=== PATIENT | female | born 1960 | race Caucasian/White ===

== ENCOUNTER 2020-01-12 11:17 | Outpatient (CLI) | payer BC, SELFPAY ==
--- NOTE | ~2020-01-12 | CT_ITS ---
EXAMINATION: CT sinus wo con DATE: 01/12/2020 11:47 INDICATION: Chronic sinusitis TECHNIQUE: Computed tomography (CT) of the paranasal sinuses was performed without intravenous contra st. The dose-length product was 284.29 mGy-cm. Automated exposure control and iterative reconstructio n technique were employed. COMPARISON: None FINDINGS: There is no significant mucosal thickening or air-fluid level. No mucoperiosteal reaction. Ostiomeatal units are patent. Leftward nasal septal deviation. There are teeth protruding into the ma xillary antrum bilaterally. Mastoids are pneumatized. IMPRESSION: 1. No significant paranasal sinus disease. Reviewed, dictated and finalized at location A.
== END 2020-01-12 11:18 | disposition home or self-care (01) ==
PROVIDERS: PCP Family Medicine; Visit Provider Otolaryngology
DX: J32.9 Chronic sinusitis, unspecified (principal)
CPT/HCPCS: 70486

== ENCOUNTER 2020-12-01 15:08 | Outpatient (CLI) | payer BC, SELFPAY ==
--- NOTE | ~2020-12-01 | DEXA_ITS ---
Bone Density Report Name: Norah Cardenas Age: 60 Sex: Female Ethnicity: White Date of : 1960 Indication: postmenopausal; height loss; prior fracture; asthma or emphysema; Referring Provider: DUANE AHMADI Study: Bone densitometry was performed. Exam Date: December 01, 2020 Accession number: [id number] Bone Density: Region BMD T-score Z-score Classification AP Spine (L1-L4) 1.380 3.0 4.4 Normal Femoral Neck (Left) 0.886 0.3 1.6 Normal Total Hip (Left) 1.112 1.4 2.3 Normal Total Hip Bilateral Avg 1.077 1.1 2.0 Normal Femoral Neck (Right) 0.748 -0.9 0.3 Normal Total Hip (Right) 1.041 0.8 1.7 Normal World Health Organization criteria for BMD impression classify patients as: Normal (T-score at or above -1.0), Osteopenia (T-score between -1.0 and -2.5), or Osteoporosis (T-score at or below -2.5). 10-year Fracture Risk: FRAX not reported because: All T-scores for Spine Total, Hip Total, Femoral Neck at or above -1.0 Clinical Information Provided by Patient: Has had a low trauma fracture Has the following medical conditions: Asthma or Emphysema Patient maximum height was 64.5 Menopause Age: 53 Does not regularly consume dairy products Drinks caffeinated beverages Onset of menses at age 13 Number of children 1 Impression: The patient has normal bone mass. The patient has risk factors, including: previous fracture. Discussion: BONE DENSITY IS ABOVE THE MINIMUM DESIRABLE LEVEL AT ALL SKELETAL SITES TESTED. This patient?s bone mineral density is above the minimum desirable level (T-score -1.0 or better) at all sites measured. The patient should follow a healthful lifestyle (good nutrition with adequate calcium and vitamin D, and appropriate weight-bearing exercise). Follow-Up: Consider repeating this study in 5 years or sooner if there is some new clinical indication. Reported by: JAKE on 12/01/2020 3:27:00 PM. Reviewed, dictated and finalized at location ASelvin RICH
--- NOTE | ~2020-12-01 | MM_ITS ---
EXAMINATION: MM screening constantino BI w callum HISTORY: Screening mammogram TECHNIQUE: Craniocaudal and mediolateral oblique 3-D tomosynthesis images were obtained and synthetic 2-D images were generated. CAD analysis was submitted and interpreted. COMPARISON: 07/01/2019 and 06/23/2000 19 mm left breast ultrasound examinations 01/03/2018, 08/21/2016, 07/13/2014 bilateral digital screening mammogram examinations BREAST PARENCHYMAL COMPOSITION: The breasts are almost entirely fatty. FINDINGS: Surgical clips are noted in the upper outer left breast; history of prior benign left breas t excisional biopsy. There is no evidence of suspicious mass, calcification, or architectural distort ion to suggest malignancy in either breast. There has been no suspicious interval change. IMPRESSION: 1. No mammographic evidence of malignancy. 2. Recommend routine screening mammography in one year. BI-RADS Category 1: Negative Reviewed, dictated and finalized at location A.
== END 2020-12-01 15:09 | disposition home or self-care (01) ==
LOC: ANHIMG 15:10
PROVIDERS: PCP Family Medicine; Visit Provider Family Medicine
DX: Z12.31 Encounter for screening mammogram for malignant neoplasm of breast (principal); Z78.0 Asymptomatic menopausal state; R93.7 Abnormal findings on diagnostic imaging of other parts of musculoskeletal system
CPT/HCPCS: 77063; 77067; 77080

== ENCOUNTER 2022-09-09 11:13 | Outpatient (CLI) | payer BC, SELFPAY ==
--- NOTE | ~2022-09-09 | MM_ITS ---
EXAMINATION: MM screening constantino BI w callum HISTORY: Screening mammogram TECHNIQUE: Craniocaudal and mediolateral oblique 3-D tomosynthesis images were obtained and synthetic 2-D images were generated. CAD analysis was submitted and interpreted. COMPARISON: 11/23/2020 bilateral screening mammogram BREAST PARENCHYMAL COMPOSITION: Biopsy marker clips in upper outer left breast; history of prior braulio gn left breast biopsy. FINDINGS: There is no evidence of suspicious mass, calcification, or architectural distortion to sugg est malignancy in either breast. There has been no suspicious interval change. IMPRESSION: 1. No mammographic evidence of malignancy. 2. Recommend routine screening mammography in one year. BI-RADS Category 1: Negative Reviewed, dictated and finalized at location A. TARY TECHNICIAN
== END 2022-09-09 11:14 | disposition home or self-care (01) ==
LOC: ANHIMG 11:35
PROVIDERS: PCP Family Medicine; Visit Provider Family Medicine
DX: Z12.31 Encounter for screening mammogram for malignant neoplasm of breast (principal)
CPT/HCPCS: 77063; 77067

== ENCOUNTER 2024-01-04 01:48 | Day surgery (SDC) | payer BC, SELFPAY ==
[2024-01-01 13:12] VITALS: BMI 46.7
[2024-01-04 10:20] VITALS: BP 148/91; PULSE 85; RESP 18; TEMP 36.4; O2SAT 98; BMI 46.0
[2024-01-04] MEDS: LACTATED RINGERS 1,000 ML 150 ML IV CONT (10:45)
--- NOTE | 2024-01-04 11:05 | WPDANESEPPF ---
Anes - Initial Pre Proc Eval Procedure: Operation Date: 01/04/24 11:00 Proposed Procedures p Esophagogastroduodenoscopy&Screen Colon - Freddy Malcolm MD Date/Time: 01/04/24 11:05 Surgeon: Freddy Malcolm MD Pre Op Diagnosis: neoplasm screening, GERD, Dysphagia unspecified Patient Data Age: 63 Gender: F Height: 1.52 m Weight: 97.9 kg Last Vital Signs Temp 35.9 C L 01/04/24 10:50 Pulse 81 01/04/24 10:50 Resp 18 01/04/24 10:50 BP 128/71 01/04/24 10:50 Pulse Ox 96 01/04/24 10:50 O2 Del Method Room Air 01/04/24 10:50 Allergies Allergy/AdvReac Type Severity Reaction Status Date / Time clarithromycin AdvReac Severe Joint Pain Verified 01/04/24 10:29 Home Medications Medication Instructions Recorded Confirmed Type enalapril 5 mg-hydrochlorothiazide 1 tablet PO DAILY #180 tabs 03/13/22 01/04/24 Rx 12.5 mg tablet albuterol sulfate 2.5 mg/3 mL 2.5 mg (3 mL) inhalation Q4-6H PRN 03/20/22 01/04/24 Rx (0.083 %) solution for nebulization shortness of breath or wheezing #90 mL mometasone-formoterol HFA 100 2 puff inhalation Q12H 11/21/22 01/04/24 History mcg-5 mcg/actuation aerosol inhaler (Dulera) montelukast 10 mg tablet 10 mg PO DAILY #90 tabs 12/10/23 01/04/24 Rx famotidine 40 mg tablet 40 mg PO QHS #90 tabs 12/18/23 01/04/24 Rx dexlansoprazole 30 mg See Rx Instructions .Route 12/19/23 01/04/24 Rx capsule,biphase delayed release .COMPLEX #90 caps albuterol sulfate 90 mcg/actuation 1 inh inhalation QID PRN Shortness 01/01/24 01/04/24 History aerosol inhaler Of Breath Or Wheezing butterbur root extract 100 mg PO DAILY 01/01/24 01/04/24 History cetirizine 10 mg tablet (All Day 10 mg PO DAILY 01/01/24 01/04/24 History Allergy (cetirizine)) juwyevwz-[id number] 8 mg-folic 400 1 tablet PO DAILY 01/01/24 01/04/24 History mcg-K 50 mcg-lutein 300 mcg tablet (Multivitamin Women 50 Plus) quercetin 500 mg capsule 500 mg PO DAILY 01/01/24 01/04/24 History Patient hx anesthesia problems: none Family hx anesthesia problems: none Results Review: All pre-operative results and documents have been reviewed as part of the pre-operative evaluation. [facility] [place] Past Medical History Medical History Abnormal bone density screening Abnormal mammogram of left breast BMI 36.0-36.9,adult BMI 37.0-37.9, adult BMI 38.0-38.9,adult BMI 39.0-39.9,adult BMI greater than 40 Edema Hypoxia MELQUIADES on CPAP Screening, lipid Surgical History Surgical History History of ankle surgery History of Hx of laparoscopic gastric banding Family History Family History Father Acute myocardial infarction Mother Pulmonary embolism Sibling Hypertension Diabetes mellitus Social History Social History Smoking status: Never smoker Second hand tobacco smoke exposure: No Alcohol intake: current Substance use: never Substance use type: does not use Living arrangements: with family Occupation/Education: occupation 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 Informed Consent: The patient's anesthetic plan and its atten
--- NOTE | 2024-01-04 11:24 | WPDHPUPDATE1 ---
History and Physical Update Update Date/Time: 01/04/24 11:24 History and Physical has been reviewed, including an updated exam of the patient. There are NO changes in the patient's condition. Risks, benefits, and alternatives have been discussed and questions answered. Patient agrees to proceed with procedure.
--- NOTE | 2024-01-04 11:34 | SUR.OPER ---
EGD ended 113 colonoscopy started 113
[2024-01-04 11:48] VITALS: BP 127/66; PULSE 78; RESP 18; O2SAT 98
[2024-01-04 11:58] VITALS: BP 117/66; PULSE 80; RESP 23; O2SAT 97
[2024-01-04 12:08] VITALS: BP 127/67; PULSE 76; RESP 24; O2SAT 98
== END 2024-01-04 12:20 | disposition home or self-care (01) ==
PROVIDERS: PCP Family Medicine; Referring Provider Nurse Practitioner; Visit Provider Internal Medicine Gastroenterology
PROC: 0DJ08ZZ Inspection of Upper Intestinal Tract, Via Natural or Artificial Opening Endoscopic (ICD-10-PCS; CPT 43235; principal; 2024-01-04 11:00)
DX: Z12.11 Encounter for screening for malignant neoplasm of colon (principal); D12.0 Benign neoplasm of cecum; K57.30 Diverticulosis of large intestine without perforation or abscess without bleeding; K64.8 Other hemorrhoids; K29.70 Gastritis, unspecified, without bleeding; K21.9 Gastro-esophageal reflux disease without esophagitis; Z98.84 Bariatric surgery status; G47.33 Obstructive sleep apnea (adult) (pediatric); Z79.51 Long term (current) use of inhaled steroids; E66.01 Morbid (severe) obesity due to excess calories; Z68.42 Body mass index [BMI] 45.0-49.9, adult
CPT/HCPCS: 45380; 43239; 88305; J2704; J7120